=== PATIENT | female | born 1940 | race American Indian/Alaskan Native ===

== ENCOUNTER 2019-01-15 15:51 | Emergency (ER) | payer MEDICARE ==
--- NOTE | 2019-01-15 17:28 | Event Note ---
ED Screening Note ED Screening Note: PT COMES TO ER BECAUSE HER CAREGIVER WANTS HER EVALUATED FOR "ANXIETY, PSYCHOSIS, OR DEPRESSION." NO ONE AT BEDSIDE WITH PT JASON SON- JESUS I HAVE CALLED AND NO ONE ANSWERS; RETRY PT LIVES WITH NON RELATIVE CAREGIVER PT DENIES BEING HARMED BY ANYONE SHE STATES "I KNOW HOW PEOPLE ARE WHEN THEY HAVE BEEN HURT BEFORE" REFERRING TO CAREGIVER AND HER PT TAKES 6 MEDS PER DAY: DEPRESSION MED TRAZADONE FOR SLEEP PT RAMBLING, HISTRIONIC DENIES CP OR SOB VSS This initial assessment/diagnostic orders/clinical plan/treatment(s) is/are subject to change based on patients health status, clinical progression and re- assessment by fellow clinical providers in the ED. Further treatment and workup at subsequent clinical providers discretion. Patient/guardian urged not to elope from the ED as their condition may be serious if not clinically assessed and managed. Initial orders include: BASIC LABS UA CT HEAD CONCERNS 1. INFECTION CAUSING ALTERED BEHAVIOR 2. INTRACRANIAL CAUSE OF BEHAVIOR CHANGE 3. DEMENTIA
[2019-01-15 18:06] LABS: Hematocrit 34.6 % (30.3-42.9); Hemoglobin 11.5 gm/dl (10.1-14.3); Mean Corpuscular HGB Conc 33 % (30-34); Mean Corpuscular Volume 94 fl (79-97); Platelet Count 220 K/mm3 (140-440); Red Blood Count 3.69 M/mm3 (3.65-5.03); Red Cell Distribution Width 15.2 % (13.2-15.2)
[2019-01-15 18:24] LABS: Alanine Aminotransferase 13 units/L (7-56); Albumin 3.7 g/dL (3.9-5); BUN/Creatinine Ratio 26; Blood Urea Nitrogen 21 mg/dL (7-17); Hemolysis Index 5
--- NOTE | 2019-01-15 18:56 | Emergency Department Report ---
ED General Adult HPI - General Chief complaint: Anxiety Stated complaint: MH Time Seen by Provider: 01/15/19 17:38 Source: patient, family, EMS ( EMS documentation not available at time of chart dictation ), RN notes reviewed Mode of arrival: Stretcher Limitations: Other (patient is a poor historian) - History of Present Illness Initial comments: This is a 78-year-old female. The patient is not known to this provider previously. The patient presents to the ER with a primary complaint of bilateral knee pain, knee aching, secondary complaint of inability to fall asleep. She denies headache, neck pain, chest pain, abdominal pain, shortness of breath and urinary symptoms. She makes no endorsement of homicidality or suicidality. She makes no endorsement of intentional overdose. Additional history collateral information was obtained from patient's daughter, and caregiver at personal home. Apparently, the patient has been intermittently violent, and aggressive. However, in the emergency room, a she has not been aggressive, homicidal or suicidal. Currently, she is filing her nails and in no acute distress. Her daughter states that she's had intermittent issues with behavior chronically. -: Sudden, month(s) Location: left, right, lower extremity (knees) Severity scale (0 -10): 0 Quality: aching Consistency: intermittent Improves with: none Worsens with: none - Related Data Home Medications Medication Instructions Recorded Confirmed Last Taken Amlodipine Besylate [Norvasc] 10 mg PO DAILY 01/15/19 01/15/19 Unknown Buspirone HCl 5 mg PO BID 01/15/19 01/15/19 Unknown Donepezil HCl [Donepezil HCl Odt] 5 mg PO HS 01/15/19 01/15/19 Unknown Linaclotide [Linzess] 145 mcg PO QDAY 01/15/19 01/15/19 Unknown Losartan Potassium 100 mg PO DAILY 01/15/19 01/15/19 Unknown Metformin HCl [Metformin HCl ER] 500 mg PO HS 01/15/19 01/15/19 Unknown Mirabegron [Myrbetriq] 50 mg PO QDAY 01/15/19 01/15/19 Unknown PARoxetine HCl [Paroxetine] 30 mg PO DAILY 01/15/19 01/15/19 Unknown Solifenacin Succinate [Vesicare] 10 mg PO DAILY 01/15/19 01/15/19 Unknown traZODone [Desyrel] 100 mg PO QHS 01/15/19 01/15/19 Unknown Allergies Allergy/AdvReac Type Severity Reaction Status Date / Time No Known Allergies Allergy Unverified 01/15/19 17:52 ED Review of Systems ROS: Stated complaint: MH Other details as noted in HPI Constitutional: denies: fever Eyes: denies: eye discharge ENT: denies: congestion Respiratory: denies: wheezing Cardiovascular: denies: syncope Gastrointestinal: denies: abdominal pain, nausea, vomiting, hematemesis, melena Genitourinary: denies: dysuria Musculoskeletal: arthralgia Skin: denies: lesions Neurological: denies: weakness Psychiatric: denies: auditory hallucinations, visual hallucinations, homicidal thoughts, suicidal thoughts ED Past Medical Hx - Past Medical History Previous Medical History?: Yes Hx Hypertension: Yes Hx Diabetes: Yes Hx Psychiatric Treatment: Yes - Social History Smoking Status: Never Smoker Substance Use Type: None - Medications Home Medications: Home Medications Medication Instructions Recorded Confirmed Last Taken Type Amlodipine Besylate [Norvasc] 10 mg PO DAILY 01/15/19 01/15/19 Unknown History Buspirone HCl 5 mg PO BID 01/15/19 01/15/19 Unknown History Donepezil HCl [Donepezil HCl Odt] 5 mg PO HS 01/15/19 01/15/19 Unknown History Linaclotide [Linzess] 145 mcg PO QDAY 01/15/19 01/15/19 Unknown History Losartan Potassium 100 mg PO DAILY 01/15/19 01/15/19 Unknown History Metformin HCl [Metformin HCl ER] 500 mg PO HS 01/15/19 01/15/19 Unknown History Mirabegron [Myrbetriq] 50 mg PO QDAY 01/15/19 01/15/19 Unknown History PARoxetine HCl [Paroxetine] 30 mg PO DAILY 01/15/19 01/15/19 Unknown History Solifenacin Succinate [Vesicare] 10 mg PO DAILY 01/15/19 01/15/19 Unknown History traZODone [Desyrel] 100 mg PO QHS 01/15/19 01/15/19 Unknown History ED Physical Exam - General Limitations: No Limitations General appearance: alert, in no apparent distress - Head Head exam: Present: atraumatic, normocephalic - Eye Eye exam: Present: normal appearance, EOMI, other (visual acuity intact to finger counting and color perception at a close system). Absent: nystagmus - ENT ENT exam: Present: normal exam, normal orophraynx, mucous membranes moist, normal external ear exam - Neck Neck exam: Present: normal inspection, full ROM. Absent: tenderness, meningismus - Respiratory Respiratory exam: Present: normal lung sounds bilaterally. Absent: respiratory distress - Cardiovascular Cardiovascular Exam: Present: regular rate, normal rhythm, normal heart sounds. Absent: bradycardia, tachycardia, irregular rhythm, systolic murmur, diastolic murmur, rubs, gallop - GI/Abdominal GI/Abdominal exam: Present: soft. Absent: distended, tenderness, guarding, rebound, rigid, pulsatile mass - Extremities Exam Extremities exam: Present: normal inspection, full ROM, other (2+ pulses noted in the bilateral upper, lower extremities. There is no long bone tenderness. Musculoskeletal compartments are soft. The pelvis is stable.). Absent: pedal edema, joint swelling, calf tenderness - Back Exam Back exam: Present: normal inspection, full ROM. Absent: tenderness, CVA tenderness (R), CVA tenderness (L), paraspinal tenderness, vertebral tenderness - Neurological Exam Neurological exam: Present: alert (the patient is alert to name, location and month.), normal gait, other (there is no facial droop. The tongue is midline. Extraocular movements are intact bilaterally. Patient speaking in full complete sentences. Shoulder shrug is intact bilaterally. Hearing is grossly intact bilaterally. Visual acuity intact to finger counting and color perception at a close distance. 5/5 strength 4 extremities. Sensation intact to light touch in 4 extremities.). Absent: motor sensory deficit - Psychiatric Psychiatric exam: Present: normal affect, normal mood. Absent: homicidal ideation, suicidal ideation - Skin Skin exam: Present: warm, dry, intact, normal color. Absent: rash ED Course Vital Signs 01/15/19 01/15/19 01/15/19 16:43 16:53 19:10 Temperature 98.2 F Pulse Rate 71 95 H Respiratory 16 16 Rate Blood Pressure 158/57 158/63 Blood Pressure 158/57 158/57 [Left] O2 Sat by Pulse 95 95 97 Oximetry 01/15/19 19:16 Temperature Pulse Rate Respiratory Rate Blood Pressure 158/63 Blood Pressure [Left] O2 Sat by Pulse 97 Oximetry - Reevaluation(s) Reevaluation #1: 01/15/19 20:27 Differential diagnosis, including not limited to: Behavioral disturbance, urinary tract infection, dementia, medical clearance Assessment and plan: 78-year-old female sent to the ER for not sleeping, aggressive behavior, general medical exam. She is pleasant, calm and cooperative, afebrile with reassuring vital signs, with an unremarkable physical examination. Screening laboratory studies do not demonstrate any emergent toxicologic/metabolic insult. Urinalysis not consistent with urinary tract infection. Noncontrast CT scan of the brain is negative for acute disease. The patient does not appear to have an emergent medical condition at this time. She does not meet 1013 criteria at this time or involuntary hold criteria at this time. Extensive discussion had with patient's son and daughter, on the phone, and explained significant findings. They have requested "sleep medicine", and I explained to them that treatment of sleep disorders is not an emergency medical condition, that she'll need to follow-up with an outpatient primary care doctor or sleep specialist. Currently, the patient is filing her nails, and in no acute distress. As a courtesy, we will have the psychiatric team evaluate the patient, to reiterate need for outpatient follow-up. mental health consultation is requested. Reevaluation #2: 01/15/19 22:50 Patient has been in this department for hours without clinical decompensation. She is in no acute distress. Seen in conjunction with psychiatric business manager, who will help arrange and coordinate transfer to anchor facility for geriatric psychiatry. At this point time, the patient does not appear to have an immediate medical contraindication to psychiatric evaluation, consultation and placement. She's had no violent outbursts and has been very pleasant calm and cooperative while here in the department. ED Medical Decision Making - Lab Data Result diagrams: 01/15/19 17:48 01/15/19 17:48 Vital Signs 01/15/19 01/15/19 16:43 16:53 Temperature 98.2 F Pulse Rate 71 95 H Respiratory 16 16 Rate Blood Pressure 158/57 Blood Pressure 158/57 158/57 [Left] O2 Sat by Pulse 95 95 Oximetry Lab Results 01/15/19 01/15/19 01/15/19 Range/Units 17:48 17:48 17:48 WBC 5.4 (4.5-11.0) K/mm3 RBC 3.69 (3.65-5.03) M/mm3 Hgb 11.5 (10.1-14.3) gm/dl Hct 34.6 (30.3-42.9) % MCV 94 (79-97) fl MCH 31 (28-32) pg MCHC 33 (30-34) % RDW 15.2 (13.2-15.2) % Plt Count 220 (140-440) K/mm3 Sodium 142 (137-145) mmol/L Potassium 3.7 (3.6-5.0) mmol/L Chloride 106.6 (98-107) mmol/L Carbon Dioxide 25 (22-30) mmol/L Anion Gap 14 mmol/L BUN 21 H (7-17) mg/dL Creatinine 0.8 (0.7-1.2) mg/dL Estimated GFR > 60 ml/min BUN/Creatinine Ratio 26 % Glucose 73 (65-100) mg/dL Calcium 9.0 (8.4-10.2) mg/dL Total Bilirubin 0.20 (0.1-1.2) mg/dL AST 19 (5-40) units/L ALT 13 (7-56) units/L Alkaline Phosphatase 72 (35-129) units/L Total Creatine Kinase 149 H (30-135) units/L Total Protein 7.2 (6.3-8.2) g/dL Albumin 3.7 L (3.9-5) g/dL Albumin/Globulin Ratio 1.1 % TSH (0.270-4.200) mlU/mL Urine Color (Yellow) Urine Turbidity (Clear) Urine pH (5.0-7.0) Ur Specific [place] (1.003-1.030) Urine Protein (Negative) mg/dL Urine Glucose (UA) (Negative) mg/dL Urine Ketones (Negative) mg/dL Urine Blood (Negative) Urine Nitrite (Negative) Urine Bilirubin (Negative) Urine Urobilinogen (<2.0) mg/dL Ur Leukocyte Esterase (Negative) Urine WBC (Auto) (0.0-6.0) /HPF Urine RBC (Auto) (0.0-6.0) /HPF U Epithel Cells (Auto) (0-13.0) /HPF Urine Mucus /HPF Salicylates (2.8-20.0) mg/dL Acetaminophen (10.0-30.0) ug/mL 01/15/19 01/15/19 01/15/19 Range/Units 17:48 17:48 17:48 WBC (4.5-11.0) K/mm3 RBC (3.65-5.03) M/mm3 Hgb (10.1-14.3) gm/dl Hct (30.3-42.9) % MCV (79-97) fl MCH (28-32) pg MCHC (30-34) % RDW (13.2-15.2) % Plt Count (140-440) K/mm3 Sodium (137-145) mmol/L Potassium (3.6-5.0) mmol/L Chloride (98-107) mmol/L Carbon Dioxide (22-30) mmol/L Anion Gap mmol/L BUN (7-17) mg/dL Creatinine (0.7-1.2) mg/dL Estimated GFR ml/min BUN/Creatinine Ratio % Glucose (65-100) mg/dL Calcium (8.4-10.2) mg/dL Total Bilirubin (0.1-1.2) mg/dL AST (5-40) units/L ALT (7-56) units/L Alkaline Phosphatase (35-129) units/L Total Creatine Kinase (30-135) units/L Total Protein (6.3-8.2) g/dL Albumin (3.9-5) g/dL Albumin/Globulin Ratio % TSH 2.270 (0.270-4.200) mlU/mL Urine Color (Yellow) Urine Turbidity (Clear) Urine pH (5.0-7.0) Ur Specific [place] (1.003-1.030) Urine Protein (Negative) mg/dL Urine Glucose (UA) (Negative) mg/dL Urine Ketones (Negative) mg/dL Urine Blood (Negative) Urine Nitrite (Negative) Urine Bilirubin (Negative) Urine Urobilinogen (<2.0) mg/dL Ur Leukocyte Esterase (Negative) Urine WBC (Auto) (0.0-6.0) /HPF Urine RBC (Auto) (0.0-6.0) /HPF U Epithel Cells (Auto) (0-13.0) /HPF Urine Mucus /HPF Salicylates < 0.3 L (2.8-20.0) mg/dL Acetaminophen < 5.0 L (10.0-30.0) ug/mL 01/15/19 Range/Units 19:33 WBC (4.5-11.0) K/mm3 RBC (3.65-5.03) M/mm3 Hgb (10.1-14.3) gm/dl Hct (30.3-42.9) % MCV (79-97) fl MCH (28-32) pg MCHC (30-34) % RDW (13.2-15.2) % Plt Count (140-440) K/mm3 Sodium (137-145) mmol/L Potassium (3.6-5.0) mmol/L Chloride (98-107) mmol/L Carbon Dioxide (22-30) mmol/L Anion Gap mmol/L BUN (7-17) mg/dL Creatinine (0.7-1.2) mg/dL Estimated GFR ml/min BUN/Creatinine Ratio % Glucose (65-100) mg/dL Calcium (8.4-10.2) mg/dL Total Bilirubin (0.1-1.2) mg/dL AST (5-40) units/L ALT (7-56) units/L Alkaline Phosphatase (35-129) units/L Total Creatine Kinase (30-135) units/L Total Protein (6.3-8.2) g/dL Albumin (3.9-5) g/dL Albumin/Globulin Ratio % TSH (0.270-4.200) mlU/mL Urine Color Yellow (Yellow) Urine Turbidity Clear (Clear) Urine pH 5.0 (5.0-7.0) Ur Specific [place] 1.020 (1.003-1.030) Urine Protein <15 mg/dl (Negative) mg/dL Urine Glucose (UA) Neg (Negative) mg/dL Urine Ketones Neg (Negative) mg/dL Urine Blood Sm (Negative) Urine Nitrite Neg (Negative) Urine Bilirubin Neg (Negative) Urine Urobilinogen < 2.0 (<2.0) mg/dL Ur Leukocyte Esterase Tr (Negative) Urine WBC (Auto) 1.0 (0.0-6.0) /HPF Urine RBC (Auto) 7.0 (0.0-6.0) /HPF U Epithel Cells (Auto) 2.0 (0-13.0) /HPF Urine Mucus Few /HPF Salicylates (2.8-20.0) mg/dL Acetaminophen (10.0-30.0) ug/mL - EKG Data -: EKG Interpreted by Me EKG shows normal: sinus rhythm - EKG Data When compared to previous EKG there are: previous EKG unavailable 01/15/19 20:26 EKG today shows a sinus bradycardia, 58 beats for minute, left axis deviation, left anterior fascicular block, QTC prolonged, the EKG is abnormal, the EKG is not consistent with ST elevation myocardial infarction. - Radiology Data Radiology results: report reviewed, image reviewed Noncontrast CT scan of the brain is negative for acute disease Critical care attestation.: If time is entered above; I have spent that time in minutes in the direct care of this critically ill patient, excluding procedure time. ED Disposition Clinical Impression: Medical clearance for psychiatric admission Disposition: DC/TX-65 PSY HOSP/PSY UNIT Is pt being admited?: No Does the pt Need Aspirin: No Condition: Stable Additional Instructions: Patient may continue current outpatient medications. Please follow-up with your primary care doctor within the next month. Return to emergency room right away with new, worsened, different symptoms, or symptoms not present on the initial emergency room evaluation. Referrals: KATY FONSECA MD [Primary Care Provider] - 3-5 Days
--- NOTE | 2019-01-15 19:12 | Cat Scan Report ---
CT head/brain wo con INDICATION / CLINICAL INFORMATION: 78 years Female; AMS. TECHNIQUE: Routine CT head without contrast. All CT scans at this location are performed using CT dos e reduction for ALARA by means of automated exposure control. COMPARISON: None. FINDINGS: BRAIN / INTRACRANIAL CONTENTS: No acute hemorrhage, mass effect, midline shift, hydrocephalus, or acu te, large territorial infarct. No chronic infarct or encephalomalacia. Lateral ventricles are generou s, suggesting deep central involution. Moderate dilatation of left temporal horn tip seen suggesting moderate volume loss in the left hippocampus. Moderate cortical involution is seen. . No significant white matter abnormality. CRANIOCERVICAL JUNCTION: No significant abnormality. ORBITS: No significant abnormality of visualized orbits. SINUSES / MASTOIDS: No significant abnormality of the visualized paranasal sinuses or mastoid air niesha ls. ADDITIONAL FINDINGS: None. IMPRESSION: I do not see an acute parenchymal lesion in the brain Signer Name: Babatunde Bernard MD Signed: 01/15/2019 7:08 PM Workstation Name: [id number]
[2019-01-15 20:07] LABS: Bilirubin,Urine NEG (Negative); Blood,Urine SM (Negative); Color,Urine Yellow (Yellow); Mucus,Urine FEW /HPF; Protein,Urine <15 mg/dL mg/dL (Negative); Urobilinogen,Urine < 2.0 mg/dL (<2.0)
[2019-01-15 23:10] VITALS: BP 158/63
== END 2019-01-16 01:00 ==
LOC: ED 15:51
DX: F91.1 Conduct disorder, childhood-onset type (principal); M25.561 Pain in right knee; M25.562 Pain in left knee; I10 Essential (primary) hypertension; E11.9 Type 2 diabetes mellitus without complications; R51 Headache; Z79.899 Other long term (current) drug therapy
CPT/HCPCS: 36415; 70450; 80053; 80320; 81001; 82550; 84443; 85027; 87086; 93005; 93010; 99285; G0480